=== PATIENT | female | born 1955 ===

== ENCOUNTER 2017-05-14 14:15 | Observation (INO) | payer OTHER ==
[2017-05-14 14:16] VITALS: BMI 33.4
[2017-05-14] MEDS ORDERED: Aspirin 325 mg EC Tablets PO STA (15:13)
--- NOTE | 2017-05-14 15:15 | C.PDOC ---
History Of Present Illness 61 year old female, whose PMHx includes HTN, CAD s/p stents, and Hyperlipdemia, presents to the ED for evaluation of chest pain, palpitations, and mild shortness of breath which has been intermittent for 2 days. Patient denies fever , chills, cough, and has no other complaints at this time. Time Seen by Provider: 05/14/17 15:04 Chief Complaint (Nursing): Chest Pain History Per: Patient History/Exam Limitations: no limitations Onset/Duration Of Symptoms: Days (2), Intermittent Episodes Current Symptoms Are (Timing): Still Present Quality: "Pain" Additional History Per: Patient Past Medical History Reviewed: Historical Data, Nursing Documentation, Vital Signs Vital Signs: Last Vital Signs Temp 97.7 F 05/14/17 14:30 Pulse 63 05/14/17 17:33 Resp 16 05/14/17 17:33 BP 147/46 L 05/14/17 17:33 Pulse Ox 98 05/14/17 17:33 - Medical History PMH: Asthma, Diabetes, HTN, Hypercholesterolemia, Rheumatoid Arthritis Surgical History: Appendectomy (1969), Cholecystectomy (1973), Coronary Stent ( 2008) Family History: States: Unknown Family Hx - Social History Hx Alcohol Use: No Hx Substance Use: No - Immunization History Hx Tetanus Toxoid Vaccination: No Hx Influenza Vaccination: Yes Hx Pneumococcal Vaccination: Yes Review Of Systems Constitutional: Negative for: Fever, Chills Cardiovascular: Positive for: Chest Pain, Palpitations Respiratory: Positive for: Shortness of Breath. Negative for: Cough Physical Exam - Physical Exam Appears: Non-toxic, No Acute Distress, Other (morbidly obese ) Skin: Normal Color, Warm, Dry Head: Atraumatic, Normacephalic Eye(s): bilateral: Normal Inspection Oral Mucosa: Moist Neck: Supple Chest: Symmetrical, No Deformity, No Tenderness Cardiovascular: Rhythm Regular, No Murmur Respiratory: Normal Breath Sounds, No Rales, No Rhonchi, No Wheezing Extremity: Normal ROM, Capillary Refill (less than 2 seconds ) Neurological/Psych: Oriented x3, Normal Speech, Normal Cognition ED Course And Treatment - Laboratory Results Result Diagrams: 05/14/17 15:25 05/14/17 15:25 ECG: Interpreted By Me, Viewed By Me ECG Rhythm: Sinus Rhythm Interpretation Of ECG: Normal Sinus Rhythm at rate 80bpm. No ST/T wave changes. Rate From EC O2 Sat by Pulse Oximetry: 98 (on RA ) Pulse Ox Interpretation: Normal Medical Decision Making Medical Decision Making: cp r/o acs- lab simaigng pending Progress: Bloodwork, CXR, EKG ordered and reviewed. Aspirin PO administered. pt reassesed pain free in er. discussed with dr gutierrez accepts for obs Disposition - Disposition Disposition: HOSPITALIZED Disposition Time: 18:06 Condition: STABLE - Clinical Impression Clinical Impression: Chest pain - Scribe Statement The provider has reviewed the documentation as recorded by the Scribe (Netta Babin) Provider Attestation: All medical record entries made by the Scribe were at my direction and personally dictated by me. I have reviewed the chart and agree that the record accurately reflects my personal performance of the history, physical exam, medical decision making, and the department course for this patient. I have also personally directed, reviewed, and agree with the discharge instructions and disposition. Decision To Admit - Pt Status Changed To: Hospital Disposition Of: Observation - . Bed Request Type: Telemetry Admitting Physician: Chalino Hall Patient Diagnosis: Chest pain
[2017-05-14 15:30] LABS: BASO % 0.4 % (0.0-2.0); EOS # 0.2 K/uL (0.0-0.7); EOS % 2.6 % (0.0-4.0); HEMOGLOBIN 12.2 g/dL (11.0-16.0); LYMPH # 1.7 K/uL (1.0-4.3); MEAN CELL VOLUME 83.4 fL (81.0-99.0); MEAN CORPUSCULAR HEMOGLOBIN 28.6 pg (27.0-31.0); MEAN CORPUSCULAR HGB CONC 34.3 g/dL (33.0-37.0); MEAN PLATELET VOLUME 7.1 fL (7.2-11.7); MONO # 0.3 K/uL (0.0-0.8); MONO % 3.8 % (0.0-10.0); NEUT # 5.4 K/uL (1.8-7.0); NEUT % 71.2 % (50.0-75.0); NRBC % 0.1 % (0.0-2.0); RBC 4.26 Mil/uL (3.80-5.20); RED CELL DISTRIBUTION WIDTH 13.9 % (11.5-14.5); WHITE BLOOD COUNT 7.6 K/uL (4.8-10.8)
[2017-05-14] MEDS ORDERED: Aspirin 325 mg EC Tablets PO ONE (15:30)
[2017-05-14 15:40] LABS: PROTHROMBIN TIME 10.9 SECONDS (9.7-12.2)
[2017-05-14 15:41] LABS: ALBUMIN 4.1 g/dL (3.5-5.0); ALT/SGPT 16 U/L (9-52); AST/SGOT 28 U/L (14-36); BLOOD UREA NITROGEN 16 mg/dL (7-17); CALCIUM 9.2 mg/dl (8.6-10.4); GFR AFRICAN-AMERICAN 50; GFR NON-AFRICAN AMERICAN 42
--- NOTE | 2017-05-14 16:45 | RAD ---
PROCEDURE: CHEST RADIOGRAPH, 1 VIEW HISTORY: chest pain COMPARISON: 09/27/2015. FINDINGS: LUNGS: The lungs are well inflated and clear. PLEURA: No pneumothorax or pleural fluid seen. CARDIOVASCULAR: Normal. OSSEOUS STRUCTURES: No significant abnormalities. VISUALIZED UPPER ABDOMEN: Normal. OTHER FINDINGS: None. IMPRESSION: No active pulmonary disease.
[2017-05-14 17:06] LABS: B-TYPE NATRIURETIC PEPTIDE 356 pg/mL (0-900)
[2017-05-15] MEDS: Methadone 40 mg Tab PO SCH (09:31)
[2017-05-15] MEDS: Pantoprazole 40 mg EC Tab PO SCH (09:31)
[2017-05-15] MEDS: Metoprolol Succinate 50 mg XL Tab PO SCH (09:32)
--- NOTE | 2017-05-15 11:44 | CP.PCM.CON ---
<DarianReggie - Last Filed: 05/15/17 13:11> History of Present Illness - History of Present Illness History of Present Illness: PGY2 Cardiology Consult Note for Dr. Thompson This 61 year old female with PMHx of HTN, CAD s/p 1 stent (2008), and Hyperlipdemia - presents to the ED for evaluation of chest pain, palpitations, and mild shortness of breath which has been intermittent for the past 4 days. She reports being a patient of Dr. Thompson's (Cardiology) and was last seen in his office on 05/03/17. At that time, her Losartan was increased to 50mg PO qD due to elevated BP. This past Saturday, she developed a sharp chest pain with radiation to the L arm, that lasted for several minutes. This occurred once on Saturday, and again on Saturday. Her home BP reading was 189/94, at which point she took an old dose of Klonopin 0.1mg, once on saturday and once on saturday. She has been off this medication for well over one year when she decided to take it. It temporarily dropped her BP to the 130's, however she quickly rebounded to the 190's. While home, she also developed light headedness, dizziness, and blurry vision, spurring her visit to the Emergency Room. Her last symptoms were yesterday 05/14/17, and she is currently asymptomatic. Denies current dizziness, blurry vision, chest pain, SOB, abdominal pain, n/v, d/c, LE edema, or any additional acute complaints. PMH: Asthma, Diabetes, HTN, Hypercholesterolemia, Rheumatoid Arthritis Surgical History: Appendectomy (1969), Cholecystectomy (1973), Coronary Stent ( 2008) Family History: States: Unknown Family Hx Allergies: iodine, epinephrine Meds: see EMR Review of Systems: -Gen: No fever, No chills, No headache, No lethargy, No weakness. -HEENT: No dizziness, No change in vision, No change in hearing, No sore throat , No dysphagia, No nasal congestion, No mucous. -Cardio: No chest pain, No palpitations, No lower extremity edema, No orthopnea. -Resp: No cough, No dyspnea, No hemoptysis, No wheezing, No pain on inspiration. -GI: No abdominal pain, No nausea/vomiting, No diarrhea/constipation, No hematochezia, No hematemesis. -: No dysuria, No urinary freq, No incontinence, No hematuria, No change in urinary stream. -MSK: No back pain, No muscle weakness, No radiating pain. -Skin: No itching, No rash, No lesions. -Neuro: No confusion, No numbness, No tingling, No focal weakness, No radicular pain, No syncope. -Psych: No anxiety, No depression, No H/I, No S/I, No hallucinations. Past Patient History - Past Medical History & Family History Past Medical History?: Yes - Past Social History Smoking Status: Never Smoked - CARDIAC Hx Hypercholesterolemia: Yes Hx Hypertension: Yes - PULMONARY Hx Asthma: Yes - ENDOCRINE/METABOLIC Hx Endocrine Disorders: Yes Hx Diabetes Mellitus Type 2: Yes - MUSCULOSKELETAL/RHEUMATOLOGICAL Hx Rheumatoid Arthritis: Yes - GASTROINTESTINAL Hx Gastrointestinal Disorders: Yes Hx Gastroesophageal Reflux: Yes - PSYCHIATRIC Hx Substance Use: No - SURGICAL HISTORY Hx Appendectomy: Yes (1969) Hx Cholecystectomy: Yes (1973) Hx Coronary Stent: Yes (2008) - ANESTHESIA Hx Anesthesia: Yes Hx Anesthesia Reactions: No Hx Malignant Hyperthermia: No Meds Allergies/Adverse Reactions: Allergies Allergy/AdvReac Type Severity Reaction Status Date / Time iodine Allergy Severe SWELLING Verified 05/14/17 14:34 epinephrine AdvReac Severe Verified 05/14/17 14:34 - Medications Medications: Current Medications Aspirin (Ecotrin) 81 mg PO DAILY [facility] Last Admin: 05/15/17 09:31 Dose: 81 mg Folic Acid (Folic Acid) 1 mg PO DAILY [facility] Last Admin: 05/15/17 09:31 Dose: 1 mg Heparin Sodium (Porcine) (Heparin) 5,000 units SC Q12 [facility] Last Admin: 05/15/17 09:31 Dose: 5,000 units Isosorbide Mononitrate (Imdur Er) 30 mg PO DAILY [facility] Last Admin: 05/15/17 09:31 Dose: 30 mg Losartan Potassium (Cozaar) 25 mg PO DAILY [facility] Last Admin: 05/15/17 09:30 Dose: 25 mg Methadone HCl (Methadose) 40 mg PO DAILY [facility] Last Admin: 05/15/17 09:31 Dose: 40 mg Methadone HCl (Methadone) 10 mg PO DAILY [facility] Last Admin: 05/15/17 09:31 Dose: 10 mg Metoprolol Succinate (Toprol Xl) 50 mg PO DAILY [facility] Last Admin: 05/15/17 09:32 Dose: Not Given Pantoprazole Sodium (Protonix Ec Tab) 40 mg PO DAILY [facility] Last Admin: 05/15/17 09:31 Dose: 40 mg Rosuvastatin Calcium (Crestor) 20 mg PO [facility] Physical Exam - Constitutional Appears: Non-toxic, No Acute Distress - Head Exam Head Exam: ATRAUMATIC, NORMAL INSPECTION - Eye Exam Eye Exam: EOMI, Normal appearance Pupil Exam: NORMAL ACCOMODATION - ENT Exam ENT Exam: Mucous Membranes Moist - Respiratory Exam Respiratory Exam: Clear to Auscultation Bilateral, NORMAL BREATHING PATTERN. absent: Wheezes - Cardiovascular Exam Cardiovascular Exam: REGULAR RHYTHM, +S1, +S2. absent: JVD - GI/Abdominal Exam GI & Abdominal Exam: Normal Bowel Sounds, Soft. absent: Tenderness - Extremities Exam Extremities exam: Positive for: full ROM, normal inspection. Negative for: joint swelling, tenderness - Neurological Exam Neurological exam: Alert, CN II-XII Intact, Oriented x3 - Psychiatric Exam Psychiatric exam: Normal Affect, Normal Mood - Skin Skin Exam: Dry, Intact, Normal Color, Warm Results - Vital Signs Recent Vital Signs: Last Vital Signs Temp 97.6 F 05/15/17 08:40 Pulse 56 L 05/15/17 09:29 Resp 20 05/15/17 08:40 BP 161/82 H 05/15/17 09:29 Pulse Ox 97 05/15/17 08:40 - Labs Result Diagrams: 05/14/17 15:25 05/14/17 15:25 Labs: Laboratory Results - last 24 hr 05/14/17 05/14/17 05/14/17 15:25 15:25 15:25 WBC 7.6 RBC 4.26 Hgb 12.2 Hct 35.6 MCV 83.4 MCH 28.6 MCHC 34.3 RDW 13.9 Plt Count 284 MPV 7.1 L Neut % (Auto) 71.2 Lymph % (Auto) 22.0 Monroe % (Auto) 3.8 Eos % (Auto) 2.6 Baso % (Auto) 0.4 Neut # (Auto) 5.4 Lymph # (Auto) 1.7 Monroe # (Auto) 0.3 Eos # (Auto) 0.2 Baso # (Auto) 0.0 PT 10.9 INR 1.0 APTT 29 Sodium 139 Potassium 4.0 Chloride 98 Carbon Dioxide 26 Anion Gap 19 BUN 16 Creatinine 1.3 H Est GFR ( Amer) 50 Est GFR (Non-Af Amer) 42 Random Glucose 122 H Calcium 9.2 Total Bilirubin 0.6 AST 28 ALT 16 Alkaline Phosphatase 116 Troponin I < 0.0120 NT-Pro-B Natriuret Pep 356 Total Protein 8.2 Albumin 4.1 Globulin 4.1 H Albumin/Globulin Ratio 1.0 05/14/17 23:51 WBC RBC Hgb Hct MCV MCH MCHC RDW Plt Count MPV Neut % (Auto) Lymph % (Auto) Monroe % (Auto) Eos % (Auto) Baso % (Auto) Neut # (Auto) Lymph # (Auto) Monroe # (Auto) Eos # (Auto) Baso # (Auto) PT INR APTT Sodium Potassium Chloride Carbon Dioxide Anion Gap BUN Creatinine Est GFR ( Amer) Est GFR (Non-Af Amer) Random Glucose Calcium Total Bilirubin AST ALT Alkaline Phosphatase Troponin I < 0.0120 NT-Pro-B Natriuret Pep Total Protein Albumin Globulin Albumin/Globulin Ratio Assessment & Plan - Assessment and Plan (Free Text) Assessment: Chest pain Trop negative x2 EKG nsr CXR negative HTN continue imdur 30 continue losartan 50mg po qD (recently adjusted home dose) continue toprol XL 50mg PO qD CAD s/p Stent 2008 continue crestor 20mg PO qD continue ASA 81mg PO qD Prophylaxis Continue Heparin 5k u SC q12 Case Discussed with Dr. Jay Farmer, PGY2 - Date & Time Date: 05/15/17 Time: 10:00 <Paulino Thompson - Last Filed: 05/15/17 22:45> Meds - Medications Medications: Current Medications Aspirin (Ecotrin) 81 mg PO DAILY [facility] Last Admin: 05/15/17 09:31 Dose: 81 mg Folic Acid (Folic Acid) 1 mg PO DAILY [facility] Last Admin: 05/15/17 09:31 Dose: 1 mg Heparin Sodium (Porcine) (Heparin) 5,000 units SC Q12 [facility] Last Admin: 05/15/17 21:41 Dose: 5,000 units Isosorbide Mononitrate (Imdur Er) 30 mg PO DAILY [facility] Last Admin: 05/15/17 09:31 Dose: 30 mg Losartan Potassium (Cozaar) 50 mg PO DAILY [facility] Methadone HCl (Methadose) 40 mg PO DAILY [facility] Last Admin: 05/15/17 09:31 Dose: 40 mg Methadone HCl (Methadone) 10 mg PO DAILY [facility] Last Admin: 05/15/17 09:31 Dose: 10 mg Metoprolol Succinate (Toprol Xl) 50 mg PO DAILY [facility] Last Admin: 05/15/17 09:32 Dose: Not Given Pantoprazole Sodium (Protonix Ec Tab) 40 mg PO DAILY [facility] Last Admin: 05/15/17 09:31 Dose: 40 mg Rosuvastatin Calcium (Crestor) 20 mg PO [facility] Last Admin: 05/15/17 21:41 Dose: 20 mg Results - Vital Signs Recent Vital Signs: Last Vital Signs Temp 98.1 F 05/15/17 15:05 Pulse 58 L 05/15/17 16:00 Resp 20 05/15/17 15:05 BP 145/77 05/15/17 15:05 Pulse Ox 96 05/15/17 15:05 - Labs Result Diagrams: 05/14/17 15:25 05/14/17 15:25 Labs: Laboratory Results - last 24 hr 05/14/17 05/15/17 05/15/17 23:51 06:18 11:48 POC Glucose (mg/dL) 90 127 H Troponin I < 0.0120 05/15/17 05/15/17 16:22 21:01 POC Glucose (mg/dL) 93 178 H Troponin I Assessment & Plan - Assessment and Plan (Free Text) Plan: Patient seen and evaluated Plan of care d/w the medical hospital sales and plan of care as documented
[2017-05-16 07:04] LABS: FREE T4 0.8 ng/dL (0.78-2.19)
[2017-05-16 07:43] LABS: FOLATE 19.8 ng/mL
[2017-05-16] MEDS: Methadone 40 mg Tab PO SCH (10:00)
[2017-05-16] MEDS: Pantoprazole 40 mg EC Tab PO SCH (10:00)
[2017-05-16] MEDS: Metoprolol Succinate 50 mg XL Tab PO SCH (10:05)
--- NOTE | 2017-05-16 11:00 | VASCLAB ---
PROCEDURE: HISTORY: DIZZINESS, LIGHTHEADED, R/O CAROTID STENOSIS COMPARISON: None available. TECHNIQUE: Grayscale and duplex Doppler evaluation of the cervical carotid and vertebral arteries were performed. The common carotid, carotid bifurcations and cervical Internal Carotid Artery (ICA) and proximal External Carotid Artery (ECA) were evaluated. The vertebral arteries were evaluated for gross patency and flow direction. Report prepared by Carlos Capps, BS, RVT FINDINGS: RIGHT CAROTID ARTERIES: 1. Common Carotid Artery: No significant focal plaque formation of the right common carotid artery. Maximum Peak Systolic velocity: 93 cm/sec: End-diastolic velocity 12 cm/sec. 2. Carotid Bifurcation: plaque formation. Maximum Peak Systolic velocity: 63 cm/sec: End-diastolic velocity 14 cm/sec. 3. Internal Carotid Artery: Noncalcific plaque Plaque description: Homogeneous 3.1. Proximal Segment: Peak systolic velocity 72 cm/sec: End-diastolic velocity 21 cm/sec - % stenosis 0-15% 3.2. Middle Segment: Peak systolic velocity 57 cm/sec: End-diastolic velocity 15 cm/sec - % stenosis 0-15% 3.3. Distal Segment: Peak systolic velocity 65 cm/sec: End-diastolic velocity 16 cm/sec - % stenosis 0-15% 4. External Carotid Artery: Noncalcific plaque. Peak systolic velocity 144 cm/sec 5. ICA/CCA Ratio: 1.0 LEFT CAROTID ARTERIES: 1. Common Carotid Artery: No significant focal plaque formation of the left common carotid artery. Maximum Peak Systolic velocity: 89 cm/sec: End-diastolic velocity 16 cm/sec. 2. Carotid Bifurcation: plaque formation. Maximum Peak Systolic velocity: 83 cm/sec: End-diastolic velocity 22 cm/sec. 3. Internal Carotid Artery: Noncalcific plaque Plaque description: Homogeneous 3.1. Proximal Segment: Peak systolic velocity 90 cm/sec: End-diastolic velocity 28 cm/sec - % stenosis 0-15% 3.2. Middle Segment: Peak systolic velocity 117 cm/sec: End-diastolic velocity 33 cm/sec - % stenosis 0-15% 3.3. Distal Segment: Peak systolic velocity 50 cm/sec: End-diastolic velocity 13 cm/sec - % stenosis 0-15% 4. External Carotid Artery: No significant focal plaque formation. Peak systolic velocity 81 cm/sec 5. ICA/CCA Ratio: 1.7 VERTEBRAL ARTERIES: 1. Right Vertebral Artery: The right vertebral artery flow direction is antegrade. 2. Left Vertebral Artery: The left vertebral artery flow direction is antegrade. OTHER FINDINGS: 1. Right Brachial Blood pressure: 192 mmHg. 2. Left Brachial Blood pressure: 178 mmHg. IMPRESSION: RIGHT: Duplex scan does not suggest hemodynamically significant stenosis of the right extracranial carotid arteries. LEFT: Duplex scan does not suggest hemodynamically significant stenosis of the left extracranial carotid arteries. Severe tortuosity noted of the left ICA.
[2017-05-16 11:21] VITALS: TEMP 97.7
--- NOTE | 2017-05-16 11:29 | CT ---
PROCEDURE: CT scan brain dated 05/16/2017 HISTORY: Rule out stroke COMPARISON: None available. TECHNIQUE: Contiguous helical/transaxial computed tomography images were obtained through the head/brain without intravenous contrast. Radiation dose: Total exam DLP = 1033.75 mGy-cm. This CT exam was performed using one or more of the following dose reduction techniques: Automated exposure control, adjustment of the mA and/or kV according to patient size, and/or use of iterative reconstruction technique. FINDINGS: HEMORRHAGE: No acute parenchymal, subarachnoid nor extra-axial hemorrhage. BRAIN: Suspect minimal chronic periventricular white matter ischemic changes. No obvious parenchymal nor extra-axial mass or collection seen on this noncontrast study. Mild mild generalized volume loss. Mild vascular calcifications a present. VENTRICLES: No obstructive hydrocephalus. CALVARIUM: No acute calvarial fractures. PARANASAL SINUSES: Unremarkable as visualized. No significant inflammatory changes. MASTOID AIR CELLS: Unremarkable as visualized. No inflammatory changes. OTHER FINDINGS: None. IMPRESSION: No acute intracranial hemorrhage. Suspect minimal chronic periventricular white matter ischemic changes. Mild generalized volume loss.
[2017-05-16 16:23] VITALS: BP 128/73; PULSE 52; RESP 18; O2SAT 97
--- NOTE | 2017-05-16 18:00 | CON ---
DATE: ATTENDING PHYSICIAN: . The patient is in room #65, bed A. REASON FOR CONSULTATION Possible transient ischemic attack. CHIEF COMPLAINT: The patient was brought into [facility] with a history of shortness of breath. From neurological point of view, I was called in to evaluate her for neuro status for her possible transient ischemic attack. HISTORY OF PRESENT ILLNESS: Ms. Belinda No is a 61-year-old right-handed Thai-speaking female, who is known to me as an outpatient, has been worked up for her cerebrovascular disease. She also was worked up for sleep study as she was found to have obstructive sleep apnea. Because of gastrophobia, she does not want to continue the CPAP machine which was held without my knowledge at the time. At present, she denies any headache, or visual or bulbar dysfunction. No focal weakness. No new symptoms. However, she knew that she had multiple small ischemic process in the brain without any manifesting long tract dysfunction. No history of involuntary movement. No history of loss of consciousness. She had an episode of lightheadedness, dizziness, and blurred vision which happened prior to the admission associating with the chest pain. PAST MEDICAL HISTORY: Hypertension, diabetes mellitus, dyslipidemia, rheumatoid arthritis. PAST SURGICAL HISTORY: Appendectomy, cholecystectomy, stent placed in the coronary arteries in 2008. ALLERGIES: TO IODINE AND EPINEPHRINE. REVIEW OF SYSTEMS: The 12-point system being reviewed from neuro, vertebrobasilar insufficiency. MEDICATIONS: Cozaar, Crestor, Ecotrin, folic acid, heparin, Imdur, methadone, Protonix, Toprol. PHYSICAL EXAMINATION: VITAL SIGNS: Blood pressure 128/85, mean artery pressure of 99, respiratory rate 16, temperature 97.4, pulse rate 52, windy. NECK: Supple. No carotid bruits. HEART: Heart sounds regular. EXTREMITIES: No edema in legs. NEUROLOGIC EXAMINATION: Mental status examination: She is awake, alert, and oriented to person, place, and time. Speech is clear. Naming, repetition, fluency, comprehension all within normal limits. Cranial nerve examination: Visual field intact. Pupils reactive. Extraocular movements normal. No nystagmus. No facial sensory deficit. No facial asymmetry. Hearing seems to be intact. Tongue is midline. Good gag. Motor examination: Outstretched hand with eyes closed, no drift noted. Power is symmetric on either side. Deep tendon reflexes biceps, brachialis, triceps absent, both knees are absent. Both ankles are absent. Plantars are equivocal response on both sides. 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 WORKUP: WBC 7.6, hemoglobin 12.2, hematocrit 35.6, platelets 284. PT 10.9, INR 1.0, PTT 29. Sodium 139, potassium 4.0, chloride 98, bicarbonate 26, GFR 42. Glucose 93, BNP 356, globulin 4.1. CONCLUSION: Ms. Belinda No has been presenting with as per neurological examination possible vertebrobasilar insufficiency which is probably secondary to her underlying risk factors, which includes hypertension, diabetes mellitus, dyslipidemia, and known untreated obstructive sleep apnea. The patient is also suffering from bilateral distal symmetric sensory motor neuropathy. PLAN: 1. I agree with antiplatelets with statin and angiotensin receptor blockers. 2. Diabetic control. 3. Weight control has been discussed with the patient. 4. The patient should have carotid Doppler/MRI of the brain and EEG for possible structural cause versus electrographic abnormal disease which can be treated. RECOMMENDATIONS: The patient should have at least sleep titration, probably she may be a good candidate for rechallenge her to treat sleep disorders. The patient;s condition has been discussed. The patient agreed with my workup. The patient will be followed closely with you. Antonio Toro MD
--- NOTE | 2017-05-16 19:02 | CP.PCM.HP ---
Past Patient History - Past Medical History & Family History Past Medical History?: Yes - Past Social History Smoking Status: Never Smoked - CARDIAC Hx Hypercholesterolemia: Yes Hx Hypertension: Yes - PULMONARY Hx Asthma: Yes - ENDOCRINE/METABOLIC Hx Endocrine Disorders: Yes Hx Diabetes Mellitus Type 2: Yes - MUSCULOSKELETAL/RHEUMATOLOGICAL Hx Rheumatoid Arthritis: Yes - GASTROINTESTINAL Hx Gastrointestinal Disorders: Yes Hx Gastroesophageal Reflux: Yes - PSYCHIATRIC Hx Substance Use: No - SURGICAL HISTORY Hx Appendectomy: Yes (1969) Hx Cholecystectomy: Yes (1973) Hx Coronary Stent: Yes (2008) - ANESTHESIA Hx Anesthesia: Yes Hx Anesthesia Reactions: No Hx Malignant Hyperthermia: No Meds Allergies/Adverse Reactions: Allergies Allergy/AdvReac Type Severity Reaction Status Date / Time iodine Allergy Severe SWELLING Verified 05/14/17 14:34 epinephrine AdvReac Severe Verified 05/14/17 14:34 Results - Vital Signs Recent Vital Signs: Last Vital Signs Temp 97.7 F 05/16/17 15:12 Pulse 52 L 05/16/17 15:12 Resp 18 05/16/17 15:12 BP 128/73 05/16/17 15:12 Pulse Ox 97 05/16/17 15:12 - Labs Result Diagrams: 05/14/17 15:25 05/14/17 15:25 Labs: Laboratory Results - last 24 hr 05/15/17 05/16/17 05/16/17 21:01 06:18 06:18 ESR 60 H POC Glucose (mg/dL) 178 H Hemoglobin A1c Triglycerides 155 H Cholesterol 217 H LDL Cholesterol Direct 155 H HDL Cholesterol 38 Vitamin B12 794 Folate 19.8 Homocysteine 11.7 Free T4 TSH 3rd Generation RPR 05/16/17 05/16/17 05/16/17 06:18 06:18 06:18 ESR POC Glucose (mg/dL) Hemoglobin A1c 6.5 Triglycerides Cholesterol LDL Cholesterol Direct HDL Cholesterol Vitamin B12 Folate Homocysteine Free T4 0.80 TSH 3rd Generation 2.59 RPR Nonreactive 05/16/17 05/16/17 05/16/17 06:27 11:17 16:37 ESR POC Glucose (mg/dL) 118 H 245 H 79 Hemoglobin A1c Triglycerides Cholesterol LDL Cholesterol Direct HDL Cholesterol Vitamin B12 Folate Homocysteine Free T4 TSH 3rd Generation RPR
--- NOTE | 2017-05-17 17:33 | CARD ---
APPROVED REPORT EKG Measurement Heart [id number] <Conclusion> Sinus rhythm with premature atrial complexes Otherwise normal ECG
== END 2017-05-16 19:33 | disposition home or self-care (01) ==
LOC: C.ER 14:15 → C.9E 17:10 → C.6T 18:10
PROVIDERS: ADMIT Internal Medicine Critical Care Medicine; ATTEND Internal Medicine Critical Care Medicine
DX: R07.89 Other chest pain (principal); E78.5 Hyperlipidemia, unspecified; I10 Essential (primary) hypertension; I25.10 Atherosclerotic heart disease of native coronary artery without angina pectoris; J45.909 Unspecified asthma, uncomplicated; G47.33 Obstructive sleep apnea (adult) (pediatric); E11.9 Type 2 diabetes mellitus without complications
CPT/HCPCS: 36415; 70450; 71045; 80053; 80061; 82607; 82746; 82948; 83036; 83090; 83880; 84439; 84443; 84484; 85025; 85610; 85651; 85730; 86592; 93880; 95812; 99285; G0378; J1644

== ENCOUNTER 2018-05-08 16:57 | Observation (INO) | payer MEDICAID, OTHER ==
[2018-05-08 16:57] VITALS: BMI 33.4
[2018-05-08 17:39] LABS: BASO # 0.1 K/uL (0.0-0.2); BASO % 0.8 % (0.0-2.0); EOS # 0.3 K/uL (0.0-0.7); EOS % 4.6 % (0.0-4.0); HEMOGLOBIN 11.3 g/dL (11.0-16.0); LYMPH # 2.3 K/uL (1.0-4.3); LYMPH % 33.2 % (20.0-40.0); MEAN CELL VOLUME 84.1 fL (81.0-99.0); MEAN CORPUSCULAR HGB CONC 33.3 g/dL (33.0-37.0); MEAN PLATELET VOLUME 8.1 fL (7.2-11.7); MONO # 0.4 K/uL (0.0-0.8); MONO % 5.3 % (0.0-10.0); NEUT # 3.8 K/uL (1.8-7.0); NEUT % 56.1 % (50.0-75.0); NRBC % 0.1 % (0.0-2.0); RBC 4.04 Mil/uL (3.80-5.20); WHITE BLOOD COUNT 6.9 K/uL (4.8-10.8)
--- NOTE | 2018-05-08 17:40 | C.PDOC ---
History Of Present Illness 62 y/o female,w/PMhx of metabolic syndrome, presents to the ER complaining of chest pain which has been present for the past 2 weeks. Patient describes the pain as pressure. Patient states that the pain radiates to the left arm. Terri serrato notes that she has been taking Imdur to alleviate angina, however there is no improvement. She states that the shortness of breath is worse with exertion and lying down. She also notes that she has bilateral leg weakness and her legs feel " tired." She also has increased abdominal girth since she began taking Lisinopril.Denies having fever,chills, nausea, vomiting, and leg swelling. PMD: Pest Control Worker: Time Seen by Provider: 05/08/18 17:03 Chief Complaint (Nursing): Chest Pain History Per: Patient History/Exam Limitations: no limitations Onset/Duration Of Symptoms: Days Current Symptoms Are (Timing): Still Present Severity: Moderate Past Medical History Reviewed: Historical Data, Nursing Documentation, Vital Signs Vital Signs: Last Vital Signs Temp 98 F 05/08/18 17:11 Pulse 60 05/08/18 17:20 Resp 18 05/08/18 17:11 BP 149/62 05/08/18 17:20 Pulse Ox 100 05/08/18 17:11 - Medical History PMH: CAD, Diabetes, HTN, Hypercholesterolemia, Rheumatoid Arthritis Denies: Asthma (denies), Chronic Kidney Disease Surgical History: Appendectomy (1969), Cholecystectomy (1973), Coronary Stent (2008) Family History: States: Diabetes, Hypertension - Social History Hx Alcohol Use: No Hx Substance Use: No - Immunization History Hx Tetanus Toxoid Vaccination: No Hx Influenza Vaccination: Yes Hx Pneumococcal Vaccination: Yes Review Of Systems Except As Marked, All Systems Reviewed And Found Negative. Constitutional: Negative for: Fever, Chills Cardiovascular: Positive for: Chest Pain Respiratory: Positive for: Shortness of Breath Gastrointestinal: Negative for: Nausea, Vomiting, Abdominal Pain Physical Exam - Physical Exam Appears: Well, Non-toxic, No Acute Distress Skin: Normal Color, Warm, Dry Head: Atraumatic, Normacephalic Eye(s): bilateral: Normal Inspection Nose: Normal Oral Mucosa: Moist Neck: Trachea Midline, Supple Chest: Symmetrical, No Tenderness Cardiovascular: No Murmur, Other (bradycardia with regular rhythm) Gastrointestinal/Abdominal: Normal Exam, Soft, No Tenderness, No Mass, No Distention, No Guarding, No Rebound Back: Normal Inspection, No Decreased ROM Extremity: Normal ROM, No Pedal Edema Neurological/Psych: Oriented x3, Normal Speech, Normal Motor, Normal Sensation ED Course And Treatment - Laboratory Results Result Diagrams: 05/08/18 17:27 05/08/18 17:27 ECG: Interpreted By Me ECG Rhythm: Sinus Rhythm ECG Interpretation: Normal O2 Sat by Pulse Oximetry: 100 (RA) Pulse Ox Interpretation: Normal Medical Decision Making Medical Decision Making: Impression: Chest Pain with multiple risk factors Differentials include: CHF, PE, unstable angina Plan: --Labs --ECG --CXR Patient will have serial troponin. Patient will be admitted to hospitalized to rule out ACS. 19:20 - Labs demonstrated normal troponin. Ddimer elevated. Pt allergic to iodi ne and unable to have CT angio. Pt to be given lovenox dose tonight and VQ in am. Discussed case and findings with Dr. Hall accepts patient to be admitted to the Hospital under his service, request Dr. Thompson for consult agrees with plan. Disposition Counseled Patient/Family Regarding: Studies Performed, Diagnosis - Disposition Disposition: HOSPITALIZED Disposition Time: 19:00 Condition: FAIR - POA Present On Arrival: Deep Vein Thrombosis / PE (possible but unable to perform CTA to r/o PE so treated and anticipate VQ when available) - Clinical Impression Clinical Impression: Chest pain - Scribe Statement The provider has reviewed the documentation as recorded by the Richard Ragsdale Provider Attestation: All medical record entries made by the Gretchenibefrain were at my direction and personally dictated by me. I have reviewed the chart and agree that the record accurately reflects my personal performance of the history, physical exam, medical decision making, and the department course for this patient. I have also personally directed, reviewed, and agree with the discharge instructions and disposition.
[2018-05-08 17:44] LABS: BLOOD UREA NITROGEN 22 mg/dL (7-17); CALCIUM 9.6 mg/dl (8.6-10.4); GFR NON-AFRICAN AMERICAN 41
[2018-05-08 17:56] LABS: B-TYPE NATRIURETIC PEPTIDE 430 pg/mL (0-900)
--- NOTE | 2018-05-08 17:57 | RAD ---
Date of service: 05/08/2018 HISTORY: Chest pain COMPARISON: 05/14/2017. TECHNIQUE: Chest PA and lateral FINDINGS: LINES AND TUBES: None. LUNG AND PLEURA: The lungs are well inflated and clear. No pleural effusion or pneumothorax. HEART AND MEDIASTINUM: The heart is not enlarged. There are aortic atherosclerotic calcifications present. The hilar and mediastinal contours are within normal limits. SKELETAL STRUCTURES: The bony structures are within normal limits for the patient's age. VISUALIZED UPPER ABDOMEN: Normal. OTHER FINDINGS: None. IMPRESSION: No active pulmonary disease.
[2018-05-08 18:04] LABS: ALB/GLOB RATIO 1.2 (1.0-2.1); ALBUMIN 4.5 g/dL (3.5-5.0); ALT/SGPT < 6 U/L (9-52); AST/SGOT 43 U/L (14-36)
[2018-05-08 18:06] LABS: PROTHROMBIN TIME 11.3 SECONDS (9.7-12.2)
[2018-05-08] MEDS ORDERED: Enoxaparin 40 mg Syringe SC STA (19:16)
[2018-05-08] MEDS ORDERED: Enoxaparin 80 mg Syringe ONE (19:40)
[2018-05-08 20:31] VITALS: RESP 20
[2018-05-08] MEDS ORDERED: Sod Polystyrene Sulf 15 gm/60 ml Susp PO ONE (21:17)
[2018-05-08] MEDS: (Novolog) Insulin Aspart, Recombinant 100 u/ml 10 ml vial SC SCH (23:02)
[2018-05-08 23:59] LABS: CK-MB 0.68 ng/mL (0.0-3.38)
[2018-05-09] MEDS: (Novolog) Insulin Aspart, Recombinant 100 u/ml 10 ml vial SC SCH ×4 (08:15→21:36)
[2018-05-09 08:23] LABS: CK-MB 0.56 ng/mL (0.0-3.38)
[2018-05-09] MEDS ORDERED: DiphenhydrAMINE 50 mg/ml Inj ONE (09:40)
[2018-05-09] MEDS: Enoxaparin 80 mg Syringe SC SCH ×2 (09:54→21:30)
[2018-05-09] MEDS: Pantoprazole 40 mg EC Tab PO SCH (09:55)
[2018-05-09] MEDS ORDERED: Verapamil 2 ML ONE (09:58)
[2018-05-09] MEDS ORDERED: Iodixanol 320 MG/ML 100 ML BOTTLE IV ONE (09:59)
[2018-05-09] MEDS ORDERED: Lidocaine Hydrochloride 10 ML INJ ONE (10:02)
[2018-05-09] MEDS ORDERED: Midazolam 2 MG/2 ML VIAL ONE ×2 (10:16→10:54)
--- NOTE | 2018-05-09 10:39 | NM ---
Date of service: 05/09/2018 COMPARISON: 05/08/2018. Single-view chest TECHNIQUE: 8.5 mCi technetium 99-m Xe-133 Gas. 3.4 mCI technetium 99-m MAA administered intravenously. FINDINGS: VENTILATION COMPONENT: Normal. PERFUSION COMPONENT: Normal. IMPRESSION: Negative ventilation perfusion scan for pulmonary embolism.
[2018-05-09 11:15] LABS: BLOOD UREA NITROGEN 18 mg/dL (7-17); CALCIUM 9.3 mg/dl (8.6-10.4); GFR NON-AFRICAN AMERICAN 56
[2018-05-09 17:02] LABS: HEMOGLOBIN 11.3 g/dL (11.0-16.0); MEAN CELL VOLUME 84.8 fL (81.0-99.0); MEAN CORPUSCULAR HEMOGLOBIN 28.4 pg (27.0-31.0); MEAN CORPUSCULAR HGB CONC 33.6 g/dL (33.0-37.0); MEAN PLATELET VOLUME 8.1 fL (7.2-11.7); RBC 3.99 Mil/uL (3.80-5.20); RED CELL DISTRIBUTION WIDTH 14.6 % (11.5-14.5); WHITE BLOOD COUNT 6.3 K/uL (4.8-10.8)
[2018-05-09 17:26] LABS: CALCIUM 9.6 mg/dl (8.6-10.4)
--- NOTE | 2018-05-09 17:45 | CP.PCM.HP ---
Past Patient History - Past Medical History & Family History Past Medical History?: Yes - Past Social History Smoking Status: Former Smoker - CARDIAC Hx Hypercholesterolemia: Yes Hx Hypertension: Yes - PULMONARY Hx Asthma: No (denies) - NEUROLOGICAL Hx Neurological Disorder: No - HEENT Hx HEENT Problems: No - RENAL Hx Chronic Kidney Disease: No - ENDOCRINE/METABOLIC Hx Endocrine Disorders: Yes Hx Diabetes Mellitus Type 2: Yes - HEMATOLOGICAL/ONCOLOGICAL Hx Blood Disorders: No - INTEGUMENTARY Hx Dermatological Problems: No - MUSCULOSKELETAL/RHEUMATOLOGICAL Hx Rheumatoid Arthritis: Yes - GASTROINTESTINAL Hx Gastrointestinal Disorders: Yes Hx Gastroesophageal Reflux: Yes - GENITOURINARY/GYNECOLOGICAL Hx Genitourinary Disorders: No - PSYCHIATRIC Hx Substance Use: No - SURGICAL HISTORY Hx Appendectomy: Yes (1969) Hx Cholecystectomy: Yes (1973) Hx Coronary Stent: Yes (2008) - ANESTHESIA Hx Anesthesia Reactions: Yes (from novocaine ,develop high heart rate ,blurring of vision) Meds Allergies/Adverse Reactions: Allergies Allergy/AdvReac Type Severity Reaction Status Date / Time iodine Allergy Severe SWELLING Verified 05/08/18 17:10 procaine [From Novocain] AdvReac Verified 05/08/18 17:17 Results - Vital Signs Recent Vital Signs: Last Vital Signs Temp 97.8 F 05/09/18 16:00 Pulse 56 L 05/09/18 16:08 Resp 20 05/09/18 16:00 BP 170/80 H 05/09/18 17:37 Pulse Ox 96 05/09/18 16:30 - Labs Result Diagrams: 05/09/18 16:47 05/09/18 16:47 Labs: Laboratory Results - last 24 hr 05/08/18 05/08/18 05/08/18 17:27 17:27 17:27 WBC 6.9 RBC 4.04 Hgb 11.3 Hct 34.0 MCV 84.1 MCH 28.0 MCHC 33.3 RDW 15.0 H Plt Count 294 MPV 8.1 Neut % (Auto) 56.1 Lymph % (Auto) 33.2 [place] % (Auto) 5.3 Eos % (Auto) 4.6 H Baso % (Auto) 0.8 Neut # (Auto) 3.8 Lymph # (Auto) 2.3 [place] # (Auto) 0.4 Eos # (Auto) 0.3 Baso # (Auto) 0.1 PT 11.3 INR 1.0 APTT 29 D-Dimer, Quantitative 465 H Sodium 137 Potassium 5.7 H Chloride 102 Carbon Dioxide 26 Anion Gap 14 BUN 22 H Creatinine 1.3 H Est GFR ( Amer) 50 Est GFR (Non-Af Amer) 41 POC Glucose (mg/dL) Random Glucose 116 H Calcium 9.6 Total Bilirubin 0.6 AST 43 H D ALT < 6 L D Alkaline Phosphatase 102 Total Creatine Kinase CK-MB (Mass) Troponin I 0.0160 NT-Pro-B Natriuret Pep 430 Total Protein 8.3 Albumin 4.5 Globulin 3.8 Albumin/Globulin Ratio 1.2 05/08/18 05/08/18 05/09/18 20:58 23:31 06:47 WBC RBC Hgb Hct MCV MCH MCHC RDW Plt Count MPV Neut % (Auto) Lymph % (Auto) [place] % (Auto) Eos % (Auto) Baso % (Auto) Neut # (Auto) Lymph # (Auto) [place] # (Auto) Eos # (Auto) Baso # (Auto) PT INR APTT D-Dimer, Quantitative Sodium Potassium Chloride Carbon Dioxide Anion Gap BUN Creatinine Est GFR ( Amer) Est GFR (Non-Af Amer) POC Glucose (mg/dL) 172 H 132 H Random Glucose Calcium Total Bilirubin AST ALT Alkaline Phosphatase Total Creatine Kinase 59 CK-MB (Mass) 0.68 Troponin I < 0.0120 NT-Pro-B Natriuret Pep Total Protein Albumin Globulin Albumin/Globulin Ratio 05/09/18 05/09/18 05/09/18 07:52 10:55 12:46 WBC RBC Hgb Hct MCV MCH MCHC RDW Plt Count MPV Neut % (Auto) Lymph % (Auto) [place] % (Auto) Eos % (Auto) Baso % (Auto) Neut # (Auto) Lymph # (Auto) [place] # (Auto) Eos # (Auto) Baso # (Auto) PT INR APTT D-Dimer, Quantitative Sodium 136 Potassium 3.7 Chloride 101 Carbon Dioxide 26 Anion Gap 13 BUN 18 H Creatinine 1.0 Est GFR ( Amer) > 60 Est GFR (Non-Af Amer) 56 POC Glucose (mg/dL) 181 H Random Glucose 185 H D Calcium 9.3 Total Bilirubin AST ALT Alkaline Phosphatase Total Creatine Kinase 52 CK-MB (Mass) 0.56 Troponin I < 0.0120 NT-Pro-B Natriuret Pep Total Protein Albumin Globulin Albumin/Globulin Ratio 05/09/18 05/09/18 05/09/18 16:47 16:47 17:14 WBC 6.3 RBC 3.99 Hgb 11.3 Hct 33.8 L MCV 84.8 MCH 28.4 MCHC 33.6 RDW 14.6 H Plt Count 258 MPV 8.1 Neut % (Auto) Lymph % (Auto) [place] % (Auto) Eos % (Auto) Baso % (Auto) Neut # (Auto) Lymph # (Auto) [place] # (Auto) Eos # (Auto) Baso # (Auto) PT INR APTT D-Dimer, Quantitative Sodium 135 Potassium 4.4 Chloride 98 Carbon Dioxide 28 Anion Gap 14 BUN 18 H Creatinine 1.3 H Est GFR ( Amer) 50 Est GFR (Non-Af Amer) 41 POC Glucose (mg/dL) 332 H Random Glucose 311 H D Calcium 9.6 Total Bilirubin AST ALT Alkaline Phosphatase Total Creatine Kinase CK-MB (Mass) Troponin I NT-Pro-B Natriuret Pep Total Protein Albumin Globulin Albumin/Globulin Ratio
--- NOTE | 2018-05-09 23:12 | CP.PCM.CON ---
History of Present Illness - History of Present Illness History of Present Illness: Patient s/p Cath L Main: Patent LAD/Diags: Patent L Cx: Patent RCA: Proximal 70% LV: EF 70%, EDP 12, No Plan: Elective PCI as out patient ASA, Plavix, Statins and B blockers Past Patient History - Past Medical History & Family History Past Medical History?: Yes - Past Social History Smoking Status: Former Smoker - CARDIAC Hx Hypercholesterolemia: Yes Hx Hypertension: Yes - PULMONARY Hx Asthma: No (denies) - NEUROLOGICAL Hx Neurological Disorder: No - HEENT Hx HEENT Problems: No - RENAL Hx Chronic Kidney Disease: No - ENDOCRINE/METABOLIC Hx Endocrine Disorders: Yes Hx Diabetes Mellitus Type 2: Yes - HEMATOLOGICAL/ONCOLOGICAL Hx Blood Disorders: No - INTEGUMENTARY Hx Dermatological Problems: No - MUSCULOSKELETAL/RHEUMATOLOGICAL Hx Rheumatoid Arthritis: Yes - GASTROINTESTINAL Hx Gastrointestinal Disorders: Yes Hx Gastroesophageal Reflux: Yes - GENITOURINARY/GYNECOLOGICAL Hx Genitourinary Disorders: No - PSYCHIATRIC Hx Substance Use: No - SURGICAL HISTORY Hx Appendectomy: Yes (1969) Hx Cholecystectomy: Yes (1973) Hx Coronary Stent: Yes (2008) - ANESTHESIA Hx Anesthesia Reactions: Yes (from novocaine ,develop high heart rate ,blurring of vision) Meds Allergies/Adverse Reactions: Allergies Allergy/AdvReac Type Severity Reaction Status Date / Time iodine Allergy Severe SWELLING Verified 05/08/18 17:10 procaine [From Novocain] AdvReac Verified 05/08/18 17:17 - Medications Medications: Current Medications Amlodipine Besylate (Norvasc) 10 mg PO DAILY [facility] Last Admin: 05/09/18 09:54 Dose: Not Given Aspirin (Ecotrin) 81 mg PO DAILY [facility] Last Admin: 05/09/18 09:52 Dose: Not Given Enoxaparin Sodium (Lovenox) 70 mg SC Q12 [facility] Last Admin: 05/09/18 21:30 Dose: 70 mg Folic Acid (Folic Acid) 1 mg PO DAILY [facility] Last Admin: 05/09/18 09:53 Dose: Not Given Insulin Aspart (Novolog) 0 unit SC [facility]; Protocol Last Admin: 05/09/18 21:36 Dose: Not Given Isosorbide Mononitrate (Imdur Er) 30 mg PO DAILY [facility] Last Admin: 05/09/18 09:53 Dose: Not Given Metoprolol Tartrate (Lopressor) 75 mg PO BID [facility] Last Admin: 05/09/18 17:37 Dose: 75 mg Pantoprazole Sodium (Protonix Ec Tab) 40 mg PO DAILY [facility] Last Admin: 05/09/18 09:55 Dose: Not Given Rosuvastatin Calcium (Crestor) 20 mg PO [facility] Last Admin: 05/09/18 21:30 Dose: 20 mg Results - Vital Signs Recent Vital Signs: Last Vital Signs Temp 97.8 F 05/09/18 16:00 Pulse 55 L 05/09/18 20:33 Resp 20 05/09/18 16:00 BP 153/71 H 05/09/18 19:33 Pulse Ox 96 05/09/18 16:30 - Labs Result Diagrams: 05/09/18 16:47 05/09/18 16:47 Labs: Laboratory Results - last 24 hr 05/08/18 05/09/18 05/09/18 23:31 06:47 07:52 WBC RBC Hgb Hct MCV MCH MCHC RDW Plt Count MPV Sodium Potassium Chloride Carbon Dioxide Anion Gap BUN Creatinine Est GFR ( Amer) Est GFR (Non-Af Amer) POC Glucose (mg/dL) 132 H Random Glucose Calcium Total Creatine Kinase 59 52 CK-MB (Mass) 0.68 0.56 Troponin I < 0.0120 < 0.0120 05/09/18 05/09/18 05/09/18 10:55 12:46 16:47 WBC 6.3 RBC 3.99 Hgb 11.3 Hct 33.8 L MCV 84.8 MCH 28.4 MCHC 33.6 RDW 14.6 H Plt Count 258 MPV 8.1 Sodium 136 Potassium 3.7 Chloride 101 Carbon Dioxide 26 Anion Gap 13 BUN 18 H Creatinine 1.0 Est GFR ( Amer) > 60 Est GFR (Non-Af Amer) 56 POC Glucose (mg/dL) 181 H Random Glucose 185 H D Calcium 9.3 Total Creatine Kinase CK-MB (Mass) Troponin I 05/09/18 05/09/18 05/09/18 16:47 17:14 21:13 WBC RBC Hgb Hct MCV MCH MCHC RDW Plt Count MPV Sodium 135 Potassium 4.4 Chloride 98 Carbon Dioxide 28 Anion Gap 14 BUN 18 H Creatinine 1.3 H Est GFR ( Amer) 50 Est GFR (Non-Af Amer) 41 POC Glucose (mg/dL) 332 H 182 H Random Glucose 311 H D Calcium 9.6 Total Creatine Kinase CK-MB (Mass) Troponin I
[2018-05-10 07:39] LABS: BASO % 0.1 % (0.0-2.0); HEMOGLOBIN 11.4 g/dL (11.0-16.0); LYMPH # 1.1 K/uL (1.0-4.3); LYMPH % 14.6 % (20.0-40.0); MEAN CELL VOLUME 84.9 fL (81.0-99.0); MEAN CORPUSCULAR HEMOGLOBIN 29.1 pg (27.0-31.0); MEAN CORPUSCULAR HGB CONC 34.3 g/dL (33.0-37.0); MEAN PLATELET VOLUME 8.1 fL (7.2-11.7); MONO # 0.3 K/uL (0.0-0.8); MONO % 4.7 % (0.0-10.0); NEUT # 5.9 K/uL (1.8-7.0); NEUT % 80.6 % (50.0-75.0); NRBC % 0.1 % (0.0-2.0); RBC 3.9 Mil/uL (3.80-5.20); RED CELL DISTRIBUTION WIDTH 14.7 % (11.5-14.5); WHITE BLOOD COUNT 7.3 K/uL (4.8-10.8)
[2018-05-10 07:55] LABS: ALB/GLOB RATIO 1.2 (1.0-2.1); ALBUMIN 4.2 g/dL (3.5-5.0); CALCIUM 9.8 mg/dl (8.6-10.4)
[2018-05-10] MEDS: (Novolog) Insulin Aspart, Recombinant 100 u/ml 10 ml vial SC SCH ×2 (08:15→12:30)
[2018-05-10 09:24] VITALS: TEMP 99.5; O2SAT 98
[2018-05-10 09:31] VITALS: BP 161/72; PULSE 55
[2018-05-10] MEDS: Enoxaparin 80 mg Syringe SC SCH (09:31)
[2018-05-10] MEDS: Pantoprazole 40 mg EC Tab PO SCH (09:32)
--- NOTE | 2018-05-10 18:19 | CP.PCM.PN ---
Objective - Vital Signs/Intake and Output Vital Signs (last 24 hours): Temp Pulse Resp BP Pulse Ox 99.5 F 55 L 20 161/72 H 98 05/10/18 07:00 05/10/18 09:31 05/10/18 07:00 05/10/18 09:31 05/10/18 07:00 Intake and Output: 05/10/18 05/10/18 06:59 18:59 Intake Total 400 Balance 400 - Labs Labs: 05/10/18 07:22 05/10/18 07:22 PT 11.3 SECONDS (9.7-12.2) 05/08/18 17:27 INR 1.0 05/08/18 17:27 APTT 29 SECONDS (21-34) 05/08/18 17:27 Assessment and Plan - Assessment and Plan (Free Text) Assessment: 62 year old female admitted with chest pain, seen and examined. Alert and orientedx3, denies sob or chest pains. s/p cardiac cath yesterday, cleared by DR Thompson, discharged home as per DR Hall. Advised to follow up with PMD in 1 week.
--- NOTE | 2018-05-10 22:36 | CP.PCM.CON ---
History of Present Illness - History of Present Illness History of Present Illness: 62 y/o female,w/PMhx of metabolic syndrome, presents to the ER complaining of chest pain which has been present for the past 2 weeks. Patient describes the pain as pressure. Patient states that the pain radiates to the left arm. Mihir spaulding notes that she has been taking Imdur to alleviate angina, however there is no improvement. She states that the shortness of breath is worse with exertion and lying down. She also notes that she has bilateral leg weakness and her legs feel " tired." She also has increased abdominal girth since she began taking Lisinopril.Denies having fever,chills, nausea, vomiting, and leg swelling. PMD: Time Seen by Provider: 05/08/18 17:03 Chief Complaint (Nursing): Chest Pain History Per: Patient History/Exam Limitations: no limitations Onset/Duration Of Symptoms: Days Current Symptoms Are (Timing): Still Present Severity: Moderate - Medical History PMH: CAD, Diabetes, HTN, Hypercholesterolemia, Rheumatoid Arthritis Denies: Asthma (denies), Chronic Kidney Disease Surgical History: Appendectomy (1969), Cholecystectomy (1973), Coronary Stent (2008) Family History: States: Diabetes, Hypertension - Social History Hx Alcohol Use: No Hx Substance Use: No - Immunization History Hx Tetanus Toxoid Vaccination: No Hx Influenza Vaccination: Yes Hx Pneumococcal Vaccination: Yes Review Of Systems Except As Marked, All Systems Reviewed And Found Negative. Constitutional: Negative for: Fever, Chills Cardiovascular: Positive for: Chest Pain Respiratory: Positive for: Shortness of Breath Gastrointestinal: Negative for: Nausea, Vomiting, Abdominal Pain Physical Exam - Physical Exam Appears: Well, Non-toxic, No Acute Distress Skin: Normal Color, Warm, Dry Head: Atraumatic, Normacephalic Eye(s): bilateral: Normal Inspection Nose: Normal Oral Mucosa: Moist Neck: Trachea Midline, Supple Chest: Symmetrical, No Tenderness Cardiovascular: No Murmur, Other (bradycardia with regular rhythm) Gastrointestinal/Abdominal: Normal Exam, Soft, No Tenderness, No Mass, No Distention, No Guarding, No Rebound Back: Normal Inspection, No Decreased ROM Extremity: Normal ROM, No Pedal Edema Neurological/Psych: Oriented x3, Normal Speech, Normal Motor, Normal Sensation Past Patient History - Past Medical History & Family History Past Medical History?: Yes - Past Social History Smoking Status: Former Smoker - CARDIAC Hx Hypercholesterolemia: Yes Hx Hypertension: Yes - PULMONARY Hx Asthma: No (denies) - NEUROLOGICAL Hx Neurological Disorder: No - HEENT Hx HEENT Problems: No - RENAL Hx Chronic Kidney Disease: No - ENDOCRINE/METABOLIC Hx Endocrine Disorders: Yes Hx Diabetes Mellitus Type 2: Yes - HEMATOLOGICAL/ONCOLOGICAL Hx Blood Disorders: No - INTEGUMENTARY Hx Dermatological Problems: No - MUSCULOSKELETAL/RHEUMATOLOGICAL Hx Rheumatoid Arthritis: Yes - GASTROINTESTINAL Hx Gastrointestinal Disorders: Yes Hx Gastroesophageal Reflux: Yes - GENITOURINARY/GYNECOLOGICAL Hx Genitourinary Disorders: No - PSYCHIATRIC Hx Substance Use: No - SURGICAL HISTORY Hx Appendectomy: Yes (1969) Hx Cholecystectomy: Yes (1973) Hx Coronary Stent: Yes (2008) - ANESTHESIA Hx Anesthesia Reactions: Yes (from novocaine ,develop high heart rate ,blurring of vision) Meds Home Medications: Home Medication List Medication Instructions Recorded Confirmed Type Clopidogrel Bisulfate [Plavix] 75 mg PO DAILY #30 tablet 05/10/18 Rx Nitroglycerin 0.4 mg SL ONCE PRN #20 tab.subl 05/10/18 Rx Allergies/Adverse Reactions: Allergies Allergy/AdvReac Type Severity Reaction Status Date / Time iodine Allergy Severe SWELLING Verified 05/08/18 17:10 procaine [From Novocain] AdvReac Verified 05/08/18 17:17 Results - Vital Signs Recent Vital Signs: Last Vital Signs Temp 99.5 F 05/10/18 07:00 Pulse 55 L 05/10/18 09:31 Resp 20 05/10/18 07:00 BP 161/72 H 05/10/18 09:31 Pulse Ox 98 05/10/18 07:00 - Labs Result Diagrams: 05/10/18 07:22 05/10/18 07:22 Labs: Laboratory Results - last 24 hr 05/10/18 05/10/18 05/10/18 06:34 07:22 07:22 WBC 7.3 RBC 3.90 Hgb 11.4 Hct 33.1 L MCV 84.9 MCH 29.1 MCHC 34.3 RDW 14.7 H Plt Count 282 MPV 8.1 Neut % (Auto) 80.6 H Lymph % (Auto) 14.6 L [place] % (Auto) 4.7 Eos % (Auto) 0.0 Baso % (Auto) 0.1 Neut # (Auto) 5.9 Lymph # (Auto) 1.1 [place] # (Auto) 0.3 Eos # (Auto) 0.0 Baso # (Auto) 0.0 Sodium 136 Potassium 4.2 Chloride 98 Carbon Dioxide 33 H Anion Gap 9 L BUN 19 H Creatinine 1.2 Est GFR ( Amer) 55 Est GFR (Non-Af Amer) 45 POC Glucose (mg/dL) 172 H Random Glucose 167 H D Calcium 9.8 Total Bilirubin 0.3 AST 24 ALT 7 L Alkaline Phosphatase 122 Total Protein 7.6 Albumin 4.2 Globulin 3.4 Albumin/Globulin Ratio 1.2 05/10/18 11:44 WBC RBC Hgb Hct MCV MCH MCHC RDW Plt Count MPV Neut % (Auto) Lymph % (Auto) [place] % (Auto) Eos % (Auto) Baso % (Auto) Neut # (Auto) Lymph # (Auto) [place] # (Auto) Eos # (Auto) Baso # (Auto) Sodium Potassium Chloride Carbon Dioxide Anion Gap BUN Creatinine Est GFR ( Amer) Est GFR (Non-Af Amer) POC Glucose (mg/dL) 138 H Random Glucose Calcium Total Bilirubin AST ALT Alkaline Phosphatase Total Protein Albumin Globulin Albumin/Globulin Ratio Assessment & Plan - Assessment and Plan (Free Text) Assessment: Patient s/p Cath L Main: Patent LAD/Diags: Patent L Cx: Patent RCA: Proximal 70% LV: EF 70%, EDP 12, No Plan: Elective PCI as out patient ASA, Plavix, Statins and B blockers
--- NOTE | 2018-05-11 20:02 | CARD ---
APPROVED REPORT Date of service: 05/08/2018 EKG Measurement Heart [id number] <Conclusion> Sinus bradycardia Otherwise normal ECG
--- NOTE | 2018-05-11 20:08 | CARD ---
APPROVED REPORT Date of service: 05/08/2018 EKG Measurement Heart [id number] <Conclusion> Sinus bradycardia with premature atrial complexes Otherwise normal ECG
--- NOTE | 2018-05-12 04:45 | CARDCATH ---
PROCEDURE DATE: 05/09/2018 PROCEDURES: 1. Left heart catheterization. 2. Coronary angiogram. CLINICAL INDICATIONS: 1. Chest pain. 2. Abnormal stress test. 3. Hypertension. 4. Hyperlipidemia. 5. Diabetes. PERFORMING PHYSICIAN: Paulino Thompson MD DESCRIPTION OF PROCEDURE: After informed consent, the patient was prepped and draped in the usual sterile fashion. Lidocaine 2% was given in the right wrist for local anesthesia. Using micropuncture technique, a 6-Brazilian sheath was introduced into the right radial artery. A JR4 6-Brazilian diagnostic catheter was inserted into the left ventricle across the aortic valve. Contrast was injected and left ventricular angiogram was done. LVEDP measured. Then, the catheter was pulled back across the aortic valve. The gradient across the aortic valve was measured. Using the same catheter, right coronary angiogram was done. subselective angiogram. Because of extreme tortuosity, the subclavian could not completely engage into right coronary artery. Then, the catheter was exchanged to 5-Brazilian Willard catheter. The catheter was inserted into left main coronary artery. Contrast was injected and left coronary angiogram was done. The patient tolerated the procedure well. Postprocedure, Terumo radial band applied with excellent hemostasis. FINDINGS: 1. Left main coronary artery is patent. 2. LAD has multiple luminal irregularities but patent. Diagonal branches are patent. 3. Left circumflex is a codominant system, has multiple luminal irregularities but patent. Prior stent is patent. 4. Right coronary artery is a codominant system. Proximal right coronary artery has approximately 70% stenosis. 5. LV ejection fraction approximately 70%. No gradient across the aortic valve. EDP is 18. IMPRESSION: 1. Single-vessel coronary artery disease as described above, approximately 70% stenosis. 2. Normal left ventricle systolic function. PLAN: Recommend right coronary artery intervention after optimal medical therapy. Paulino Thompson MD
== END 2018-05-10 13:17 | disposition home or self-care (01) ==
LOC: C.ER 16:57 → C.9E 19:15 → C.5S 19:39
PROVIDERS: ADMIT Internal Medicine Critical Care Medicine; ATTEND Internal Medicine Critical Care Medicine
DX: R07.9 Chest pain, unspecified (principal); E78.00 Pure hypercholesterolemia, unspecified; E78.5 Hyperlipidemia, unspecified; E88.81 Metabolic syndrome and other insulin resistance; I12.9 Hypertensive chronic kidney disease with stage 1 through stage 4 chronic kidney disease, or unspecified chronic kidney disease; E11.22 Type 2 diabetes mellitus with diabetic chronic kidney disease; I25.119 Atherosclerotic heart disease of native coronary artery with unspecified angina pectoris; M06.9 Rheumatoid arthritis, unspecified; K21.9 Gastro-esophageal reflux disease without esophagitis; N18.9 Chronic kidney disease, unspecified
CPT/HCPCS: 36415; 71046; 78582; 80048; 80053; 82948; 83880; 84484; 85025; 85027; 85378; 85610; 85730; 93005; 93458; 93970; 96372; 97116; 97162; 99152; 99153; 99285; A9540; A9558; C1769; C1887; G0378; G8978; G8979; J1200; J1644; J1650; J2250; J2930; J3010; Q9967